=== PATIENT | female | born 1985 ===

== ENCOUNTER 2017-06-16 08:39 | Emergency (ER) | payer MEDICAID ==
[2017-06-16 08:46] VITALS: BMI 28.8
--- NOTE | 2017-06-16 09:08 | ED PDOC ---
HPI: General Adult Time Seen by Provider: 06/16/17 08:45 Chief Complaint (Nursing): Flu-like Symptoms Chief Complaint (Provider): Flu-like symptoms History Per: Patient History/Exam Limitations: no limitations Onset/Duration Of Symptoms: Days (x3 days) Current Symptoms Are (Timing): Still Present Additional Complaint(s): 32 y/o female with a past medical history of asthma who presents to the emergency department with fever, chills, headache, body aches, and a non- productive cough x3 days. Denies vomiting or sore throat. PMD: None Past Medical History Reviewed: Historical Data, Nursing Documentation, Vital Signs Vital Signs: Last Vital Signs Temp 99 F 06/16/17 08:45 Pulse 117 H 06/16/17 08:45 Resp BP 150/84 06/16/17 08:45 Pulse Ox 100 06/16/17 09:35 - Medical History PMH: Asthma - Surgical History Other surgeries: Foot surgery - Family History Family History: States: Unknown Family Hx - Social History Current smoker - smoking cessation education provided: No Alcohol: None Drugs: Denies - Home Medications Home Medications: Ambulatory Orders Medication Instructions Recorded Albuterol HFA [Ventolin HFA 90 2 puff IH Q4H #1 puff 06/16/17 mcg/actuation (8 g)] Naproxen [Naprosyn] 500 mg PO Q12H #20 tab 06/16/17 Oseltamivir [Tamiflu] 75 mg PO BID #10 cap 06/16/17 - Allergies Allergies/Adverse Reactions: Allergies Allergy/AdvReac Type Severity Reaction Status Date / Time Unobtainable Allergy Verified 06/16/17 09:03 Review of Systems ROS Statement: Except As Marked, All Systems Reviewed And Found Negative (As per HPI otherwise negative) Constitutional: Positive for: Fever, Chills, Other (Body aches) ENT: Negative for: Throat Pain (Sore throat) Respiratory: Positive for: Cough (Non-productive) Gastrointestinal: Negative for: Vomiting Neurological: Positive for: Headache Physical Exam - Reviewed Nursing Documentation Reviewed: Yes Vital Signs Reviewed: Yes - Physical Exam Appears: Positive for: Non-toxic, No Acute Distress Head Exam: Positive for: ATRAUMATIC, NORMAL INSPECTION, NORMOCEPHALIC Skin: Positive for: Normal Color, Warm, Dry ENT: Positive for: Other (Mild hyperemia of the throat). Negative for: Normal ENT Inspection, Tonsillar Exudate Neck: Positive for: Normal, Supple Cardiovascular/Chest: Positive for: Regular Rate, Rhythm. Negative for: Murmur Respiratory: Positive for: Normal Breath Sounds (Lungs are clear bilaterally). Negative for: Accessory Muscle Use, Respiratory Distress Neurologic/Psych: Positive for: Alert, Oriented (x3) - ECG O2 Sat by Pulse Oximetry: 100 (RA) Pulse Ox Interpretation: Normal Medical Decision Making Medical Decision Making: Time: 09:03 Initial Impression: Flu-like symptoms Initial Plan: --Urine Preg --Chest x-ray --Motrin 600 mg PO --Influenza A B --Reevaluation Scribe Attestation: Documented by Felicia Castro, acting as a scribe for Sachin Trinidad MD. Provider Scribe Attestation: All medical record entries made by the Scribe were at my direction and personally dictated by me. I have reviewed the chart and agree that the record accurately reflects my personal performance of the history, physical exam, medical decision making, and the department course for this patient. I have also personally directed, reviewed, and agree with the discharge instructions and disposition. Disposition - Clinical Impression Clinical Impression: Influenza - Patient ED Disposition Is Patient to be Admitted: No Counseled Patient/Family Regarding: Studies Performed, Diagnosis, Need For Followup, Rx Given - Disposition Referrals: [facility] [Outside] Disposition: Routine/Home Disposition Time: 10:37 Condition: FAIR Prescriptions: Albuterol HFA [Ventolin HFA 90 mcg/actuation (8 g)] 2 puff IH Q4H #1 puff Naproxen [Naprosyn] 500 mg PO Q12H #20 tab Oseltamivir [Tamiflu] 75 mg PO BID #10 cap Instructions: Influenza (ED) Forms: [employer] (Bulgarian)
[2017-06-16 11:13] VITALS: BP 120/78; PULSE 77; RESP 19; TEMP 97.6; O2SAT 98
--- NOTE | 2017-06-16 15:37 | RAD ---
HISTORY: cough COMPARISON: No prior. TECHNIQUE: Chest PA and lateral FINDINGS: LUNGS: No active pulmonary disease. PLEURA: No significant pleural effusion identified. No pneumothorax apparent. CARDIOVASCULAR: Normal. OSSEOUS STRUCTURES: No significant abnormalities. VISUALIZED UPPER ABDOMEN: Normal. OTHER FINDINGS: None. IMPRESSION: No active disease.
== END 2017-06-16 11:13 | disposition home or self-care (01) ==
LOC: H.ER 08:39
DX: J11.1 Influenza due to unidentified influenza virus with other respiratory manifestations (principal); J45.909 Unspecified asthma, uncomplicated